=== PATIENT | female | born 1950 | race Caucasian/White ===

== ENCOUNTER 2021-08-12 08:31 | Outpatient (CLI) | payer OTHER ==
[~2021-08-12 08:31] MED LIST: ASA325 M1 PO; ENALAPRIL MALEA10 MG NGT; KEFLEX500 MG PO; NEURONTIN600 MG PO; TENORMIN100 MG PO; ULTRAM50 MG PO
== END 2021-08-12 08:52 | disposition home or self-care (01) ==
LOC: RAD 08:31
PROVIDERS: ATTEND Physical Medicine & Rehabilitation Hospice and Palliative Medicine
DX: M25.572 Pain in left ankle and joints of left foot (principal)

== ENCOUNTER 2021-09-30 12:36 | Outpatient (CLI) | payer OTHER | END 2021-09-30 12:48 | disposition home or self-care (01) | LOC: RAD 12:36 | PROVIDERS: ATTEND Physical Medicine & Rehabilitation Hospice and Palliative Medicine | DX: M25.571 Pain in right ankle and joints of right foot (principal) ==

== ENCOUNTER → 2024-03-19 07:45 | Outpatient (CLI) | payer OTHER ==
[~2024-03-19 07:45] MED LIST changes: +ENALAPRIL MALE2.5 MG PO; +PEPCID40 MG PO; +PROLIA60 MG/1 ML SUBCUTANEO; +PROTONIX40 MG PO; +TOPROL XL25 M1 PO; +TRICOR145 MG PO
[2024-03-19 08:28] LABS: HEMATOCRIT 36.1 % (36.0-45.00); HEMOGLOBIN 11.9 g/dL (12.0-15.00); MEAN CELL VOLUME 82.5 fL (80.00-100.00); MEAN CORPUSCULAR HEMOGLOBIN 27.1 pg (27.00-32.0); MEAN CORPUSCULAR HGB CONC 32.9 g/dl (32.0-36.0); PLATELET COUNT 311 K/uL (150-450); RED BLOOD COUNT 4.38 M/uL (4.00-6.00); RED CELL DISTRIBUTION WIDTH 13.9 % (11.5-14.5)
[2024-03-19 08:33] LABS: PH,URINE 5.5 (5.0-8.0); URINE APPEARANCE Clear; URINE BILIRRUBIN Negative (NEGATIVE); URINE BLOOD Negative; URINE COLOR Yellow; URINE GLUCOSE Negative (NEGATIVE); URINE LEUKOCYTE Trace; URINE NITRATE Negative; URINE PROTEIN Negative (NEGATIVE); URINE UROBILINOGEN 0.2 E.U./dl
[2024-03-19 08:37] LABS: URINE BACTERIA 20.1 uL (0.0-1933); URINE EPITHELIAL CELLS 18.2 uL (0.0-38.8); URINE RBC 6.2 uL (0.0-20.8); URINE WBC 10.9 uL (0.0-23.2)
[2024-03-19 09:15] LABS: INR 1.14; PARTIAL THROMBOPLASTIN TIME 29.8 SECONDS (22.0-34.0); PROTHROMBIN TIME 11.9 SECONDS (9.0-11.5)
[2024-03-19 09:41] LABS: ALBUMIN 3.9 gm/dL (3.4-5.0); BILIRUBIN TOTAL 0.41 mg/dL (0.3-1.2); CALCIUM 9.2 mg/dL (8.5-10.1); CREATININE SERUM 0.92 mg/dL (0.55-1.02); GFR 59.67; GLOBULINA 3.8 G/DL (2.4-3.5); POTASSIUM 4.62 mEq/L (3.5-5.1); TOTAL PROTEIN 7.7 gm/dL (6.4-8.2)
== END | disposition home or self-care (01) ==
LOC: LAB 07:45
PROVIDERS: ATTEND Surgery
DX: K57.30 Diverticulosis of large intestine without perforation or abscess without bleeding (principal)

== ENCOUNTER 2024-03-21 10:00 | Inpatient (IN) | payer OTHER ==
[~2024-03-21] VITALS: Ht 170.2 cm; Wt 65.8 kg
[~2024-03-21 10:00] MED LIST changes: -ENALAPRIL MALE2.5 MG PO; -PEPCID40 MG PO; -PROLIA60 MG/1 ML SUBCUTANEO; -PROTONIX40 MG PO; -TOPROL XL25 M1 PO; -TRICOR145 MG PO
[2024-03-21] MEDS ORDERED: TOPROL XL25 M1 PO (10:41)
[2024-03-21] MEDS ORDERED: PROTONIX40 MG PO (10:42)
[2024-03-21] MEDS ORDERED: TRICOR145 MG PO (10:42)
[2024-03-21] MEDS ORDERED: ENALAPRIL MALE2.5 MG PO (10:42)
[2024-03-21] MEDS ORDERED: PEPCID40 MG PO (10:43)
[2024-03-21] MEDS ORDERED: PROLIA60 MG/1 ML SUBCUTANEO (10:44)
[2024-03-22 09:56] LABS: INR 1.18; PROTHROMBIN TIME 12.2 SECONDS (9.0-11.5)
[2024-03-26] MEDS ORDERED: CEFTRIAXONE SODIUM 2,000 MG VIAL IV SCH (10:15)
[2024-03-26] MEDS ORDERED: BUPIVACAINE HCL/PF 0.25% 30ML VIAL InF SCH (10:15)
[2024-03-26] MEDS ORDERED: METRONIDAZOLE/SODIUM CHLORIDE 500 MG/100 ML PIGGYBACK IV SCH (10:15)
[2024-03-26] MEDS ORDERED: LIDOCAINE HCL 1%/EPINEPHRINE 20ML VIAL IJ SCH (10:15)
[2024-03-26] MEDS ORDERED: SUGAMMADEX SODIUM 200 MG/2 ML VIAL IV SCH (11:15)
[2024-03-26] MEDS ORDERED: RINGERS SOLUTION,LACTATED 1,000 ML IV SCH (11:30)
[2024-03-26] MEDS ORDERED: OxyCODONE HCL 5 MG TABLET (ROXICODONE) PO PRN (11:30)
[2024-03-26] MEDS ORDERED: MORPHINE SULFATE 4 MG/ML CARTRIDGE IV PRN (11:30)
[2024-03-26] MEDS ORDERED: ONDANSETRON HCL 2 MG/ML VIAL IV PRN (11:30)
[2024-03-26] MEDS ORDERED: ENALAPRILAT DIHYDRATE 1.25 MG/ML VIAL IV PRN (13:45)
[2024-03-26 13:56] LABS: HEMATOCRIT 34.5 % (36.0-45.00); HEMOGLOBIN 11.4 g/dL (12.0-15.00); MEAN CELL VOLUME 82.2 fL (80.00-100.00); MEAN CORPUSCULAR HEMOGLOBIN 27.1 pg (27.00-32.0); PLATELET COUNT 310 K/uL (150-450); RED BLOOD COUNT 4.19 M/uL (4.00-6.00); RED CELL DISTRIBUTION WIDTH 13.6 % (11.5-14.5)
[2024-03-26 14:12] LABS: ABG PH 7.378 (7.35-7.45); ABG PO2 91.2 mmHg (80-100); ABG pCO2 40.9 mmHg (35-45); BASE EXCESS -1.5 mmol/l; SaO2 96.8 %
[2024-03-26 14:13] LABS: BICARBONATE 23.6 mmol/l (23-25); Tco2 24.8 mmol/l; allen test SATISFACTORY; o2 40 %; puncture site RADIAL RIGHT
[2024-03-26] MEDS ORDERED: HYOSCYAMINE SULFATE 0.125 MG TAB.SUBL SL SCH (17:00)
[2024-03-26] MEDS ORDERED: POLYETHYLENE GLYCOL 3350 17 GM BLIST.PACK PO SCH (17:00)
[2024-03-26] MEDS ORDERED: GABAPENTIN 300 MG CAPSULE PO SCH (17:00)
[2024-03-26] MEDS ORDERED: METOCLOPRAMIDE HCL 5 MG/ML VIAL IV SCH (17:00)
[2024-03-26] MEDS ORDERED: ACETAMINOPHEN 500 MG GEL..CAP PO SCH (20:00)
[2024-03-26] MEDS ORDERED: FAMOTIDINE/PF 20 MG/2 ML VIAL IV PUSH SCH (21:00)
[2024-03-26] MEDS ORDERED: SIMETHICONE 125 MG CAPSULE PO SCH (21:00)
[2024-03-27 08:08] LABS: HEMATOCRIT 31.4 % (36.0-45.00); MEAN CELL VOLUME 81.2 fL (80.00-100.00); MEAN CORPUSCULAR HGB CONC 33.6 g/dl (32.0-36.0); PLATELET COUNT 288 K/uL (150-450); RED BLOOD COUNT 3.87 M/uL (4.00-6.00); RED CELL DISTRIBUTION WIDTH 13.8 % (11.5-14.5)
[2024-03-27 08:10] LABS: HEMOGLOBIN 10.5 g/dL (12.0-15.00); MEAN CORPUSCULAR HEMOGLOBIN 27.1 pg (27.00-32.0)
[2024-03-27] MEDS ORDERED: ENALAPRIL MALEATE 2.5 MG TABLET PO SCH (09:00)
[2024-03-27] MEDS ORDERED: LACTOBACILLUS ACIDOPHILUS 1 CAP CAP PO SCH (09:00)
[2024-03-27] MEDS ORDERED: METOPROLOL SUCCINATE 25 MG TAB.SR.24H PO SCH (09:00)
[2024-03-27 09:01] LABS: ALBUMIN 3.1 gm/dL (3.4-5.0); CALCIUM 8.2 mg/dL (8.5-10.1); CREATININE SERUM 0.71 mg/dL (0.55-1.02); GFR 80.47; MAGNESIUM 1.9 mg/dL (1.8-2.4); POTASSIUM 3.72 mEq/L (3.5-5.1)
[2024-03-27] MEDS ORDERED: POTASSIUM PHOS,M-BASIC-D-BASIC 3 MM/ML VIAL IV NR (12:00)
[2024-03-27] MEDS ORDERED: ENOXAPARIN SODIUM 40 MG/0.4 ML SYRINGE SUBCUTANEO SCH (17:00)
[2024-03-28 06:57] LABS: HEMATOCRIT 31.4 % (36.0-45.00); HEMOGLOBIN 10.4 g/dL (12.0-15.00); MEAN CELL VOLUME 80.4 fL (80.00-100.00); MEAN CORPUSCULAR HEMOGLOBIN 26.7 pg (27.00-32.0); MEAN CORPUSCULAR HGB CONC 33.2 g/dl (32.0-36.0); PLATELET COUNT 285 K/uL (150-450); RED BLOOD COUNT 3.91 M/uL (4.00-6.00); RED CELL DISTRIBUTION WIDTH 13.8 % (11.5-14.5)
[2024-03-28 07:32] LABS: CALCIUM 8.4 mg/dL (8.5-10.1); CREATININE SERUM 0.68 mg/dL (0.55-1.02); GFR 84.58; MAGNESIUM 1.9 mg/dL (1.8-2.4); POTASSIUM 3.6 mEq/L (3.5-5.1)
[2024-03-28 08:25] LABS: PHOSPHOROUS 1.7 mg/dL (2.5-4.9)
[2024-03-28] MEDS ORDERED: MULTIVIT INFUSN,ADULT 4,VIT K 10 ML VIAL IV NR (08:30)
[2024-03-28] MEDS ORDERED: POTASSIUM PHOS,M-BASIC-D-BASIC 15 MM in 0.9 % SODIUM CHLORIDE 250 ML IV NR (08:30)
[2024-03-28] MEDS ORDERED: ENOXAPARIN SODIUM 40 MG/0.4 ML SYRINGE SUBCUTANEO SCH (09:00)
[2024-03-28] MEDS ORDERED: POTASSIUM PHOS,M-BASIC-D-BASIC 3 MM/ML VIAL IV NR (11:15)
[2024-03-28] MEDS ORDERED: MELATONIN 5 MG TABLET PO SCH (21:00)
== END 2024-03-29 13:21 | disposition home or self-care (01) | DRG 331 ==
LOC: O/R 03-26 06:00 → SURH 03-26 07:00 → O/R 03-26 11:32 → SURH 03-26 11:38
PROVIDERS: Internal Medicine Geriatric Medicine; ADMIT Surgery; ATTEND Surgery
PROC: 0DBP4ZZ Excision of Rectum, Percutaneous Endoscopic Approach (ICD-10-PCS; 2024-03-26)
PROC: 0DJD8ZZ Inspection of Lower Intestinal Tract, Via Natural or Artificial Opening Endoscopic (ICD-10-PCS; 2024-03-26)
PROC: 0DTN4ZZ Resection of Sigmoid Colon, Percutaneous Endoscopic Approach (ICD-10-PCS; principal; 2024-03-26 07:00)
PROC: 4A12X4Z Monitoring of Cardiac Electrical Activity, External Approach (ICD-10-PCS; 2024-03-27)
DX: K57.30 Diverticulosis of large intestine without perforation or abscess without bleeding (principal); D64.9 Anemia, unspecified; G47.30 Sleep apnea, unspecified; I12.9 Hypertensive chronic kidney disease with stage 1 through stage 4 chronic kidney disease, or unspecified chronic kidney disease; N18.30 Chronic kidney disease, stage 3 unspecified